=== PATIENT | male | born 1965 | race Caucasian/White ===

== ENCOUNTER 2024-05-01 03:12 | Emergency (ER) | payer BC, SELFPAY ==
--- NOTE | ~2024-05-01 | XR_ITS ---
XR chest 1V portable DATE: 05/01/2024 03:48 INDICATION: Rule out pneumonia TECHNIQUE: Portable upright AP chest on 05/01/2024 at 0338 hours COMPARISON: None FINDINGS: Normal heart size. There is minimal thoracic aortic tortuosity. No hilar or mediastinal enl argement. No pulmonary infiltrate or consolidation, pleural effusion or pulmonary vascular congestion or pneumo thorax. Included skeletal structures are unremarkable. IMPRESSION: No active cardiopulmonary disease Reviewed, dictated and finalized at location A. R MANAGER
[2024-05-01] MEDS: IPRATROPIUM 0.5 MG/ALBUTEROL SULFATE 2.5 MG AMPUL.NEB 3 ML INHALATION (03:55)
[2024-05-01 03:56] VITALS: PULSE 69; RESP 20
[2024-05-01 04:03] VITALS: PULSE 67; RESP 18
[2024-05-01] MEDS: predniSONE 20 MG TABLET 60 MG PO (04:12)
[2024-05-01] MEDS: BENZONATATE 100 MG CAPSULE 200 MG PO (04:16)
--- NOTE | 2024-05-01 04:43 | ED_ITS ---
HPI - General Adult General Chief complaint: Upper Respiratory Infection Stated complaint: coughing, I feel like im drowning Time Seen by Provider: 05/01/24 03:39 History of Present Illness HPI narrative: patient is a 59-year-old gentleman who presents emergency department with chief complaint of cough and gurgling when he breathes. The patient states this feels similar to whenever he has had pneumonia patient reports his symptoms started on Friday the patient states he has had a cough has been productive of mucus the patient denies fever reports that he has recently been traveling. The patient denies leg pain or swelling Related Data Allergies Allergy/AdvReac Type Severity Reaction Status Date / Time No Known Allergies Allergy Unverified 02/24/14 17:11 Review of Systems Review of Systems: A 10 system review of systems was completed on the patient and is negative except for what is stated in the HPI. Nursing and ancillary documentation was reviewed. [facility] Family History Family History Other Cerebrovascular accident Family history of allergic disorder Family history of cardiovascular disease Social History Social History Alcohol intake: never Exam Narrative: GENERAL: Well-appearing, well-nourished, and in no acute distress. HEAD: Normocephalic, atraumatic. EYES: PERRLA and EOMI. ENT: Nares clear, no rhinorrhea or epistaxis. Mucous membranes moist. NECK: Supple. CHEST: Clear to auscultation. No respiratory distress. HEART: Regular rate and rhythm. No murmur heard. Normal peripheral pulses. ABDOMEN: Soft, nontender, nondistended, normal active bowel sounds. EXTREMITIES: Normal range of motion. No edema. SKIN: Warm, dry, no rash. NEURO: No focal deficits. Alert and oriented x3. PSYCH: Normal mood and affect. Course Vital Signs Vital signs: Vital Signs Pulse Rate 69 05/01/24 03:56 Respiratory Rate 20 05/01/24 03:56 Temperature 36.7 C 05/01/24 05:04 Pulse Rate 78 05/01/24 05:04 Respiratory Rate 18 05/01/24 05:04 Blood Pressure 129/75 05/01/24 05:04 Pulse Oximetry 98 05/01/24 05:04 Medical Decision Making Vital Signs Vital Signs: Vital Signs Pulse Rate 69 05/01/24 03:56 Respiratory Rate 20 05/01/24 03:56 Temperature 36.7 C 05/01/24 05:04 Pulse Rate 78 05/01/24 05:04 Respiratory Rate 18 05/01/24 05:04 Blood Pressure 129/75 05/01/24 05:04 Pulse Oximetry 98 05/01/24 05:04 Lab Data Labs: Lab Results 05/01/24 Range/Units 04:10 Influenza A (RT-PCR) Negative (Negative) Influenza B (RT-PCR) Negative (Negative) RSV (RT-PCR) Negative (Negative) SARS-CoV-2 RNA (RT-PCR) Negative (Negative) Discharge Plan Discharge Clinical Impression: Upper respiratory infection, Acute viral bronchitis Patient Disposition: Home, Self-Care Condition: Stable Instructions: Antibiotic Form, Acute Bronchitis (ED), Upper Respiratory Infection (ED) Follow-up/Referrals: PHYSICIAN,FAMILY DENTIST [Primary Care Provider] -
[2024-05-01 04:54] LABS: Influenza A QL RT-PCR Negative (Negative); Influenza B QL RT-PCR Negative (Negative); RSV RNA, RT-PCR Negative (Negative); SARS-CoV-2 RNA PCR Negative (Negative)
[2024-05-01 05:04] VITALS: BP 129/75; PULSE 78; RESP 18; TEMP 36.7; O2SAT 98
== END 2024-05-01 05:24 | disposition home or self-care (01) ==
PROVIDERS: Emergency Provider Emergency Medicine
DX: J20.8 Acute bronchitis due to other specified organisms (principal); J06.9 Acute upper respiratory infection, unspecified; Z20.822 Contact with and (suspected) exposure to COVID-19; Z87.01 Personal history of pneumonia (recurrent)
CPT/HCPCS: 71045; 87637; 94640; 99283; A9270; J7512

== ENCOUNTER 2025-02-26 18:32 | Emergency (ER) | payer BC, SELFPAY ==
[2025-02-26 18:36] VITALS: BP 123/87; PULSE 98; RESP 16; TEMP 36.6; O2SAT 99
--- OUTSIDE RECORDS SUMMARY | 2025-02-26 19:25 | XMS_ITS | Data Portability ---
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 Plan of Treatment Reminders Order Date Submit Date Provider Last Modified By Organization Details Last Modified Time Details Appointments Follow Up 15 2024 02:45P Niru Woods NP Not available Not available Not available Lab vitamin D, 25-hydrox y, total, serum 2024 025 [facility] (Lab), [address] [place], [address], 01/21/2025 13:46:03 CBC w/ auto diff 2024 025 [facility] (Lab), [address] [place], [address], 01/21/2025 13:46:03 lipid panel, serum 2024 025 [facility] (Lab), [address] [place], [address], 01/21/2025 13:46:03 CMP, serum or plasma 2024 025 [facility] (Lab), [address] [place], [address], 01/21/2025 13:46:03 PSA, serum or plasma 2024 025 [facility] [address] [place], [address], 01/28/2025 09:24:36 Referral None recorded. Procedures None recorded. Surgeries None recorded. Imaging None recorded. Medication Orders methylphe nidate ER 27 mg tablet,ex tended release 24 hr 2024 025 [id number], [address], [place], [id number], 01/20/2025 15:05:17 methylphe nidate ER 36 mg tablet,ex tended release 24 hr 2024 025 [id number] [facility] #[id number], [address], [place], [id number], 02/21/2025 08:48:11 methylphe nidate ER 36 mg tablet,ex tended release 24 hr 2023 024 [id number] [facility] #[id number], [address], [place], [id number], 02/21/2025 08:48:11 Patient TargetsNo targets recorded. Patient InstructionsNo instructions recorded. Reason for Referral None Reported. Results Created Date Observation Date Name Description Value Unit Range Abnormal Flag Note LastModifiedBy Organization Detail LastModifiedTime 10/16/1910/15/2024 DRUG MONIT OR, PANEL 3, SCREE N, URINE amphetamines NEGATI VE NG/mL <500 See Note A See Note A Not Available [facility] [address], [place], [address], 10/15/2024 19:07:36 10/16/1910/15/2024 DRUG MONIT OR, PANEL 3, SCREE N, URINE benzodiazepi maria victoria NEGATI VE NG/mL <100 See Note A See Note A Not Available [facility] [address], [place], [address], 10/15/2024 19:07:36 10/16/19 25 10/15/2024 DRUG MONIT OR, PANEL 3, SCREE N, URINE cocaine metabolite NEGATI VE NG/mL <150 See Note A See Note A Not Available [address], [place], [address], 10/15/2024 19:07:36 10/16/19 25 10/15/2024 DRUG MONIT OR, PANEL 3, SCREE N, URINE marijuana metabolite NEGATI VE NG/mL <20 See Note A See Note A Not Available [address], [place], [address], 10/15/2024 19:07:36 10/16/1910/15/2024 DRUG MONIT OR, PANEL 3, SCREE N, URINE opiates NEGATI VE NG/mL <100 See Note A See Note A Not Available [address], [place], [address], 10/15/2024 19:07:36 10/16/1910/15/2024 DRUG MONIT OR, PANEL 3, SCREE N, URINE oxycodone NEGATI VE NG/mL <100 See Note A See Note A Not Available [address], [place], [address], 10/15/2024 19:07:36 10/16/19 25 10/15/2024 DRUG MONIT OR, PANEL 3, SCREE N, URINE creatinine 24.5 mg/dL > or = 20.0 Not Available [address], [place], [address], 10/15/2024 19:07:36 10/16/1910/15/2024 DRUG MONIT OR, PANEL 3, SCREE N, URINE pH 6.4 4.5-9. 0 Not Available [address], [place], [address], 10/15/2024 19:07:36 10/16/19 10/15/2024 DRUG MONIT OR, PANEL 3, SCREE N, URINE oxidant NEGATI VE mcg/m L <200 Not Available [facility] [address] , [place], [address], 10/15/2024 19:07:36 10/16/1910/15/2024 DRUG MONIT OR,ME THYLP HENID METAB , QN, URINE ritalinic acid 2931 NG/mL <100 high Not Available [facility] [address], [place], [address], 10/15/2024 19:07:38 10/16/1910/15/2024 DRUG MONIT OR,ME THYLP HENID METAB , QN, URINE ritalinic acid comments See Rital inic Acid Notes , LDT Notes Not Available [facility] [address], [place], [address], 10/15/2024 19:07:38 10/16/1910/15/2024 DRUG MONIT ORING TEMPL ATE notes and comments This drug testi ng is for medic al treat ment only. Migue sis was perfo rmed as non-f orens ic testi ng and these resul ts shoul d be used only by healt linseyre provi ders to rende r diagn osis or treat ment, or to monit or progr ess of medic al condi tions . Note A: The resul ts are presu mptiv e; based only on scree new metho ds, and they have not been confi rmed by a defin itive metho d. Rital inic Acid Notes : Rital inic Acid detec venecia is consi stent with the use of the drug Methy lphen idate . LDT Notes : Confi rmati on tests were devel oped and their migue tical perfo rmanc e mirtha cteri stics have been deter mined by [facility]. It has not been clear ed or appro franck by the FDA. This assay has been valid ated pursu ant to the CLIA regul ation s and is used for clini lamine purpo ses. Healt hcare Provi ders needi ng Inter preta tion maureen tance , pleas e conta ct us at 1.877 .40.R XTOX (1.87 [phone] ) M-F, 8am to 10pm EST Not Available [facility] [address], [place], [address], 10/15/2024 19:07:39 Result Notes None recorded. Problems Name Problem SNOMED Code Status Onset Date Resolution Date Notes Provider Name and Address Organization Details Recorded Time Radiothera py follow-up 836864569 Active Not Available [facility] 3 08:47:10 Current knee cartilage tear Active Not Available [facility] 3 08:47:10 Dermal cellular nevus 069142283 Active Not Available [facility] 3 08:47:11 Current tear of medial cartilage AND/OR meniscus of knee Active Not Available [facility] 3 08:47:11 Pain in right knee Active Not Available [facility] 3 08:47:11 Genital herpes simplex 85823000 Active Not Available [facility] 3 08:47:11 Vitamin D deficiency 90783782 Active Not Available [facility] 3 08:47:11 Attention deficit hyperactiv ity disorder 962318839 Active Not Available [facility] 3 08:47:11 Benign prostatic hyperplasi a 282304675 Active 2019 Not Available [facility] 3 08:47:10 Erectile dysfunctio n 587851257 Active 2021 Not Available [facility] 3 08:47:11 Osteoarthr itis of right knee joint 3954543145871 00 Active 2021 Not Available [facility] 3 08:47:11 Injury of toenail 536033094 Active 2022 JAME Lester [address], [facility] [address], [place], [address] , [place] [employer] [facility] 3 11:25:07 Hyperlipid emia 51560778 Active 2022 JAME Lester [address], [address], [place], [address] , [facility] 3 11:38:20 Arthritis 9426176 Active 2022 Caridad Nohemi teague, [facility] 3 14:28:08 Subungual hematoma of great toe of left foot 6652595847760 9107 Active 2022 Barak Dumont DPM [address], [address], [place], [address] , [facility] 3 14:43:26 Pain of toe of left foot 0922330238007 08 Active 2022 Barak Dumont DPM [address], [address], [place], [address] , [facility] 3 15:54:44 Memory impairment 858812069 Active 2022 JAME Lester [address], [address], [place], [address] , [facility] 3 14:50:10 Pain of right knee joint 5145230241348 00 Active 2023 CRIS Jerry [address], [address], [place], [address] , [facility] 4 09:44:39 Compressio n fracture of lumbar spine 299639893 Active 2023 Idania teague, [facility] 4 16:27:56 Fracture of multiple ribs 9698117 Active 2023 Idania teague, [facility] 4 16:29:01 Problem Notes None recorded. Procedures Surgical History Date Name Laterality Status Provider Name and Address Organization Details Recorded Time 12/17/19 23 Nail Debridement completed Barak Dumont DPM [address], [address], [place], [address], [facility] 12/16/2022 14:42:40 07/06/19 20 Colonoscopy completed Not Available [facility] 08/01/19 08:43:25 Prostatectomy completed Not Available [facility] 07/31/2022 08:43:25 Knee arthroscopy/surge ry completed Not Available [facility] 07/31/2022 08:43:25 Imaging Results None recorded. Procedure Notes None recorded. Medical Equipment None Reported. Allergies No known drug allergies Medications Name Sig Start Date Stop Date Status Note LastModified by Organization Details LastModified Time Hydromet 5 mg-1.5 mg/5 mL oral solution TAKE 5 TO 10 ML BY MOUTH EVERY 4 TO 6 HOURS NEEDED FOR COUGH 01/20 completed Not Available Not Available Not Available celecoxib 200 mg capsule 12/16 completed Not Available Not Available Not Available benzonatate 200 mg capsule 01/20 completed Not Available Not Available Not Available methylpheni date 10 mg tablet TAKE 1 TABLET BY MOUTH TWICE DAILY 12/16 completed Not Available Not Available Not Available valacyclovi r 1 gram tablet TAKE 1 TABLET BY MOUTH EVERY 12 HOURS NEEDED 2024 active Not Available Not Available Not Avai lable hydrocodone 5 mg-acetamin ophen 325 mg tablet TK ONE OR TWO TS PO Q 6 H PRN 01/26 completed Not Available Not Available Not Available prednisone 20 mg tablet 3 po qday x 3 days then 2 po qday x 3 days then 1 po qday x 3 days then 1/2 tab po qday x 3 days then stop 01/20 completed Not Available Not Available Not Available Zithromax Z-Sravan 250 mg tablet TAKE 2 TABLETS (500 MG) BY ORAL ROUTE ONCE DAILY FOR 1 DAY THEN 1 TABLET (250 MG) BY ORAL ROUTE ONCE DAILY FOR 4 DAYS 12/16 completed Not Available Not Available Not Available methylpheni date ER 54 mg tablet,exte nded release 24 hr Take 1 tablet every day by oral route for 30 days. 09/03 completed Not Available Not Available Not Available oxycodone-a cetaminophe n 5 mg-325 mg tablet TAKE 1-2 TABLET BY MOUTH EVERY 6 HOURS NEEDED FOR PAIN 05/15 completed Not Available Not Available Not Available cephalexin 500 mg capsule TAKE ONE CAPSULE BY MOUTH FOUR TIMES DAILY FOR 7 DAYS 03/21 completed Not Available Not Available Not Available oseltamivir 75 mg capsule TK 1 C PO BID FOR 5 DAYS 09/30 completed Not Available Not Available Not Available neomycin-po lymyxin-dex ameth 3.5 mg/mL-10,00 0 unit/mL-0.1 % eye drops INT ONE GTT INTO OU QID X 7 DAYS active Not Available Not Available No t Available tobramycin 0.3 % eye drops INSTILL 1 DROP IN AFFECTED EYE Q 3 H UTD active Not Available Not Available No t Available gabapentin 300 mg capsule 01/20 completed Not Available Not Available Not Available Adderall XR 10 mg capsule,ext ended release TAKE 1 CAPSULE BY MOUTH EVERY DAY 11/18 completed Not Available Not Available Not Available diclofenac sodium 75 mg tablet,demarcus yed release TK 1 T PO BID 01/26 completed Not Available Not Available Not Available ergocalcife rol (vitamin D2) 1,250 mcg (50,000 unit) capsule TK 1 C PO ONCE WEEKLY IN THE MORNING FOR 12 WEEKS 06/08 completed Not Available Not Available Not Available methylpredn isolone 4 mg tablets in a dose pack FOLLOW PACKAGE DIRECTION S 08/28 completed Not Available Not Available Not Available albuterol sulfate HFA 90 mcg/actuati on aerosol inhaler INHALE TWO PUFFS Q 6 H PRN FOR SOB 01/20 completed Not Available Not Available Not Available ondansetron 4 mg disintegrat ing tablet 01/20 completed Not Available Not Available Not Available fluticasone propionate 50 mcg/actuati on nasal spray,suspe nsion SHAKE LIQUID AND USE 1 SPRAY IN EACH NOSTRIL EVERY DAY 12/16 completed Not Available Not Available Not Available finasteride 5 mg tablet TAKE 1 TABLET BY MOUTH AT BEDTIME 01/20 completed Not Available Not Available Not Available methylpheni date ER 36 mg tablet,exte nded release 24 hr TAKE 1 TABLET BY MOUTH EVERY DAY DIRECTED 02/21 completed Not Available Not Available Not Available methylpheni date ER 27 mg tablet,exte nded release 24 hr Take 1 tablet every day by oral route. 2024 active Not Available Not Available Not Avai lable azithromyci n 500 mg tablet TAKE 1 TABLET BY MOUTH DAILY 01/20 completed Not Available Not Available Not Available tadalafil 20 mg tablet TAKE 1 TABLET BY MOUTH EVERY DAY NEEDED 12/16 completed Not Available Not Available Not Available pregabalin 75 mg capsule 12/16 completed Not Available Not Available Not Available Vyvanse 30 mg capsule TAKE 1 CAPSULE BY MOUTH DAILY 11/04 completed Not Available Not Available Not Available Vyvanse 40 mg capsule Take 1 capsule every day by oral route for 30 days. 12/24 completed Not Available Not Available Not Available diclofenac 1 % topical gel APPLY TO THE AFFECTED AREA 3 TO 4 TIMES DAILY NEEDED 03/21 completed Not Available Not Available Not Available Vimovo 500 mg-20 mg tablet,imme diate and delay release TAKE 1 TABLET BY MOUTH TWICE DAILY 12/16 completed Not Available Not Available Not Available Eliquis 2.5 mg tablet 12/16 completed Not Available Not Available Not Available Pennsaid 20 mg/gram/act uation (2 %) topical soln in metered-dos e pump APPLY 2 PUMPS (40 MG) TO THE AFFECTED KNEE(S) BY TOPICAL ROUTE 2 TIMES PER DAY 08/25 completed Not Available Not Available Not Available Pennsaid 2 % topical solution in packet APPLY 2 PUMPS TO THE AFFECTED KNEE(S) TWICE DAILY 09/13 completed Not Available Not Available Not Available Flucelvax Quad (PF) 60 mcg (15 mcg x 4)/0.5 mL IM syringe ADM 0.5ML IM UTD 07/06 completed Not Available Not Available Not Available ID NOW COVID-19 Test Kit TEST DIRECTED TODAY 03/21 completed Not Available Not Available Not Available Fluzone Quad (PF) 60 mcg (15 mcg x 4)/0.5 mL IM syringe ADM 0.5ML IM UTD 09/13 completed Not Available Not Available Not Available Vitals Date Recorded Body height Body mass index (BMI) Body weight Body temperature Heart rate Oxygen saturation Oxygen saturation in Arterial blood by Pulse oximetry Systolic And Diastolic Provider Name and Address Organization Details Last Updated DateTime 5 182.88 cm 25 kg/m2 60804 g 97.7 [degF] 88 /min 99 % 99 % 138/80 mm[Hg] Janae Andersen RN [place] [employer] [facility] 5 09:57:56 Date Recorded Body height Body mass index (BMI) Body weight Body temperature Heart rate Oxygen saturation Oxygen saturation in Arterial blood by Pulse oximetry Systolic And Diastolic Provider Name and Address Organization Details Last Updated DateTime 5 182.88 cm 24 kg/m2 70055.8 5 g 98.7 [degF] 78 /min 98 % 98 % 124/80 mm[Hg] JAZZ Mcfarlane [facility] [employer] [facility] 5 14:53:00 Date Recorded Body height Body mass index (BMI) Body weight Body temperature Heart rate Oxygen saturation Oxygen saturation in Arterial blood by Pulse oximetry Systolic And Diastolic Provider Name and Address Organization Details Last Updated DateTime 4 182.88 cm 25.1 kg/m2 55615.5 9 g 98.1 [degF] 77 /min 99 % 99 % 144/86 mm[Hg] Lindsay Caceres RN [facility] [employer] [facility] 4 14:06:19 Social History Question Answer Notes LastModified by Organizat ion Details LastModified Time Tobacco Smoking Status Former Smoker Not Available [facility] 07/31/2022 08:43:19 What Is Your Level Of Caffeine Consumption? Occasional [id number] Information not available 07/31/2022 In The 14 Days Before Symptom Onset, Have You Had Close Contact With A Laboratory-confi rmed COVID-19 While That Case Was Ill? No [id number] Information not available 07/31/2022 In The 14 Days Before Symptom Onset, Have You Had Close Contact With A Person Who Is Under Investigation For COVID-19 While That Person Was Ill? No [id number] Information not available 07/31/2022 What Type Of Diet Are You Following? REGULAR [id number] Information not available 07/31/2022 Which Illicit Or Recreational Drugs Have You Used? None [id number] Information not available 07/31/2022 When Did You Quit Smoking? 16+yearssinkristel nuñez Information not available 01/20/2025 Do You Use Insect Repellent Routinely? No Information not available 01/20/2025 Where Do You Live? SingleLevelHouse Information not available 01/20/2025 What Was The Date Of Your Most Recent Tobacco Screening? 01/20/2025 Information not available 01/20/2025 How Many Children Do You Have? 2 Information not available 01/20/2025 Do You Have Any Pets? No Information not available 01/20/2025 What Is Your Relationship Status? Information not available 01/20/2025 Do You Use Your Seat Belt Or Car Seat Routinely? Yes Information not available 01/20/2025 Do You Have Smoke And Carbon Monoxide Detectors In Your Home? Yes Information not available 01/20/2025 Are You Passively Exposed To Smoke? No Information not available 01/20/2025 Are There Any Smokers In Your House? No Information not available 01/20/2025 How Much Tobacco Do You Smoke? 1 PPD [id number] Information not available 07/31/2022 Do You Participate In Social Media? Yes Information not available 01/20/2025 Do You Use Sunscreen Routinely? No Information not available 01/20/2025 Has Tobacco Cessation Counseling Been Provided? No [id number].[id number] Information not available 07/31/2022 Have You Recently Traveled Abroad? No [id number].[id number] Information not available 07/31/2022 Do You Have Any Dietary Restrictions? No [id number].35913 [id number] Information not available 07/31/2022 Sex: Unknown Functional Status Question Answer Note LastModified by Organizat ion Details LastModified Time Do you use any illicit or recreational drugs? No [id number] Information not available 07/31/2022 Do you or have you ever used any other forms of tobacco or nicotine? No [id number] Information not available 07/31/2022 What is your level of alcohol consumption? None [id number] Information not available 07/31/2022 Are you currently employed? Yes Information not available 01/20/2025 What is your occupation? [employer] [id number] 26 Information not available 07/31/2022 What is your exercise level? Heavy MIGRATION.[id number] 26 Information not available 07/31/2022 Mental Status Question Answer Note LastModified by Organization D etails LastModified Time Do you feel stressed (tense, restless, nervous, or anxious, or unable to sleep at night)? [id number] Information not available 01/20/2025 Family History Relationship Description Onset Age of this Age Resolved Age Notes LastModified by Organization Details LastModified Time Mother Cerebrovascu lar accident [email or web address] Not available 14:28:38 Mother Arthritis [email or web address] Not available 12/16/2022 14:28:46 Mother Family history of malignant neoplasm [email or web address] Not available 2022 14:29:35 Father Hypertensive disorder [email or web address] Not available 2022 14:29:06 Father Heart disease [email or web address] Not available 2022 14:29:16 Father Family history of malignant neoplasm [email or web address] Not available 2022 14:29:35 Brother Family history of malignant neoplasm [email or web address] Not available 2022 14:29:35 Notes:CANCER ON BOTH SIDES: LUNGS, BRAIN, SKIN, BREAST, COLON, PROSTATE Medical History Condition Response EAR OR HEARING PROBLEMS Y URINARY/BLADDER/KIDNEY PROBLEMS Y ARTHRITIS Y ADD/ADHD Y PNEUMONIA Y Immunizations Vaccine Type Date Status Note Provider Nam e and Address Organization Details Recorded Time Influenza, split virus, trivalent, preservative 1 completed Not Available [facility] 01/21/2025 08:32:17 COVID-19, mRNA, LNP-S, PF, 100 mcg/0.5mL dose or 50 mcg/0.25mL dose 1 completed Not Available [facility] 01/21/2025 08:32:17 zoster recombinant 1 completed Not Available [facility] 01/21/2025 08:32:17 Influenza, MDCK, quadrivalent, PF 2 completed Not Available [facility] 01/21/2025 08:32:17 COVID-19, mRNA, LNP-S, PF, 50 mcg/0.5 mL 4 completed Not Available [facility] 01/21/2025 08:32:17 Influenza, split virus, quadrivalent, PF 3 completed Lisa Barajas LPN null, [place] [facility] 03/25/2023 15:42:10 COVID-19, mRNA, LNP-S, PF, 30 mcg/0.3 mL dose 1 completed Not Available [facility] 07/31/2022 08:50:21 COVID-19, mRNA, LNP-S, PF, 30 mcg/0.3 mL dose 1 completed Not Available [facility] 07/31/2022 08:50:21 Influenza, split virus, quadrivalent, preservative 0 completed Not Available [facility] 07/31/2022 08:50:21 Influenza, split virus, quadrivalent, preservative 9 completed Not Available [facility] 07/31/2022 08:50:21 Influenza, split virus, quadrivalent, preservative 7 completed Not Available [facility] 07/31/2022 08:50:22 Tdap 6 completed Not Available [facility] 07/31/2022 08:50:22 Influenza, split virus, trivalent, preservative 5 completed Not Available [facility] 07/31/2022 08:50:22 Influenza, split virus, trivalent, preservative 4 completed Not Available [facility] 07/31/2022 08:50:22 pneumococcal, unspecified formulation 5 completed Not Available [facility] 07/31/2022 08:50:22 Tdap 1 completed Not Available [facility] 07/31/2022 08:50:22 Influenza, split virus, quadrivalent, PF 8 completed Not Available [facility] 07/31/2022 08:50:22 Past Encounters Encounter ID Performer Location Encounter Start Date Encounter Closed Date Diagnosis/Indication Diagnosis SNOMED-CT Code Diagnosis ICD10 Code Diagnosis IMO Codes Diagnosis Note [id number] [facility] [place] [place] [address] 09/13/2020 00:00:00 09/13/2020 09:35:54 [id number] Tone Tobar MD [facility] [address] [place] [address] 12/12/2020 00:00:00 12/12/2020 16:19:58 [id number] Tone Tobar MD [facility] [place] [address] [place] [address] y , [place] [address] 08/28/2021 00:00:00 08/28/2021 16:06:57 [id number] Tone Tobar MD [facility] [place] [address] [place] [address] y , [place] [address] 10/04/2021 00:00:00 10/04/2021 11:07:21 [id number] Tone Tobar MD [facility] [place] [address] [place] [address] y , [place] [address] 03/21/2022 00:00:00 03/21/2022 16:01:30 [id number] Tone Tobar MD [facility] [place] [address] [place] [address] y , [place] [address] 04/16/2022 00:00:00 04/16/2022 15:13:47 [id number] JAME Lester [facility] [place] [address] [facility] [address] [place] [address] 05/15/2022 00:00:00 05/15/2022 14:27:00 [id number] JAME Lester [facility] [place] [address] [facility] [address] [place] [address] 06/12/2022 00:00:00 06/12/2022 12:25:56 [id number] JAME Lester [facility] [place] [address] [facility] [place] [address] 10/16/2022 11:09:56 10/16/2022 11:59:02 Attention deficit hyperactivity disorder [id number] F90.9 Has not had good response with the adderall, states it makes him feel hung over and does not help him focus. He also cannot tolerate vyvanse or generic methylphen idate due to severe foot pain, felt like his nerves were tender.ILP DM checked today and appropriat e. UDS updated.Wi ll try to get approval again for Concerta to get him back on it since it worked better. If it does work he would like to try brand name ritalin. Injury of toenail [id number] S99.922A Left big toe.Toenai l is intact but likely to come off. Some mild erythema around nailbed.Wi ll do course of steroids for inflammati on, refer to podiatry to address nail. Hyperlipidemia [id number] E78.5 Screening for malignant neoplasm of prostate [id number] Z12.5 Vitamin D deficiency 347 10348 E55.9 Diabetes m ellitus screening [id number] Z13.1 [id number] Barak Dumont DPM [facility] Podiatry Glenroy Vivas [address] [place] [address] 12/16/2022 14:21:52 12/16/2022 15:56:46 Subungual hematoma of great toe of left foot [id number] S90.212A Left great toenail debrided without incidentOf floading of toeallow nail to regrowfoll ow-up as needed Pain of to e of left foot [id number] 21911 M79.675 great toe, left [id number] Olivia George MD [facility] [address] [place] [address] 03/25/2023 14:20:48 03/25/2023 16:48:47 Attention deficit hyperactivity disorder [id number] F90.9 Stable on methylphen idate ER 36mg daily. No refill needed today.UDS up to date. Memory impairment 556621 006 R41.3 Pt. concerned because he is forgetting names of people he has known for years. States he goes to do something and will forget what he was about to do. He denies having any trouble with rememberin g where he lives, daily chores/act ivities or his immediate family.Nii l get labs to r/o physiologi c causes, will also consider it could be due to his methylphen idate as he thinks symptoms also could be correlated when he switched medication s.He is still concerned and would like to evaluated by neuro. Will send referral today. Administra tion of influenza vaccine [id number] Z23 [id number] CRIS Jerry [facility] Primary Care [address] [place] [address] 12/12/2023 09:26:24 12/12/2023 09:54:50 Long-term drug therapy [id number] Z79.899 Pt denies any lending, selling, or borrowing of medication s. Denies any cp, sob, palpitatio ns, or unusual weight loss.Revie wed controlled substance agreement requiremen ts. 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 t x2 (most recently 2021)ibupr ofen/ice for painROM and strength are limited during exacerbati onshe is planning on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
--- OUTSIDE RECORDS SUMMARY | 2025-02-26 19:26 | XMS_ITS | Clinical Summary ---
Author Organization [facility] Address [address] [place] [address] Care Team Providers Care Padder Name Role Phone Verenice Woods KIM Primary Care Provider [phone] Allergies No known active allergies Medications methylphenidate CR (CONCERTA) 36 MG tablet Take 1 tablet (36 mg total) by mouth every morning. Active Encounters Date Type Department Care Team Description 02/15/2025 1:52 PM CDT Anesthesia Event [facility] [address] Demario Christian MD 02/15/2025 1:30 PM CDT - 02/15/2025 2:00 PM CDT Surgery [facility] [address] Dayton Sunshine IV, MD COLONOSCOPY WITH MID RECTAL POLYPECTOMY VIA HOT SNARE 02/15/2025 12:38 PM CDT - 02/15/2025 3:53 PM CDT Hospital Encounter [facility] [place] [address] Dayton Sunshine IV, MD Discharge Disposition: Home or Self Care (Routine Discharge) 02/15/2025 Travel from Last 3 Months Social History Tobacco Use Types Packs/Day Years Used Date Smoking Tobacco: Never Assessed Sex and Gender Information Value Date Recorded Sex Assigned at Male 02/15/2025 1:49 PM CDT Legal Sex Male 8:20 PM CDT Gender Identity Not on file Sexual Orientation Not on file Last Filed Vital Signs Vital Sign Reading Time Taken Comments Blood Pressure 122/76 02/15/2025 3:06 PM CDT Pulse 57 02/15/2025 3:06 PM CDT Temperature 36.4 C (97.6 F) 02/15/2025 2:35 PM CDT Respiratory Rate 18 02/15/2025 3:06 PM CDT Oxygen Saturation 100% 02/15/2025 3:06 PM CDT Inhaled Oxygen Concentration - - Weight 77.1 kg (170 lb) 02/15/2025 1:48 PM CDT Height 182.9 cm (6') 02/15/2025 1:48 PM CDT Body Mass Index 23.06 02/15/2025 1:48 PM CDT Plan of Treatment Health Maintenance Due Date Last Done Comments Annual Physical 1968 Hepatitis C 1983 Pneumococcal Vaccine: 50+ Years (1 of 1 - PCV) 2015 Zoster Vaccines (2 of 2) 07/05/2021 05/10/2021 COVID-19 Vaccine (5 - season) 2025 06/19/2023, 05/10/2021, 08/14/2020, Additional history exists DTaP, Tdap and Td Vaccines (6 - Td or Tdap) 01/05/2034 01/06/2024, 07/03/2015, 07/03/2009, Additional history exists Colorectal Cancer Screening Colonoscopy (10 Years) 02/15/2035 02/15/2025 Meningococcal B Vaccine Aged Out No l onger eligible based on patient's age to complete this topic Meningococcal Vaccine Aged Out No sharon otto eligible based on patient's age to complete this topic RSV Immunizations Under 20 Months Aged Out No longer eligible based on patient's age to complete this topic Procedures Procedure Name Priority Date/Time Associated Diagnosis Comments COLSC FLX W/RMVL OF TUMOR POLYP LESION SNARE TQ 02/15/2025 1:51 PM CDT Hx of polyps PROCEDURE GENERIC 02/15/2025 12: 34 PM CDT PATHOLOGY Routine 02/15/2025 12:00 AM CDT from Last 3 Months Results * PROCEDURE GENERIC (02/15/2025 12:34 PM CDT) us Dayton Sunshine IV, MD [facility] Final Resu lt * Pathology (02/15/2025 12:00 AM CDT) PATHOLOGY [facility] Department of Laboratory Medicine [address] [place] [address] , extension [phone] Pathology Report Surgical Pathology Report Name: MIRTHA POWERS Specimen #: [id number] Age: 10 1965 (Age: 59) Location: [facility] Sex: M Procedure Date: 02/15/2025 Hospital #: [id number] Date Received: 02/16/2025 Date Reported: 02/17/2025 Provider: DAYTON SUNSHINE IV, MD Source: Mid rectum, polyp Clinical History: History of polyps. FINAL DIAGNOSIS: Rectum, mid, polyp, biopsy: - Tubular adenoma. Gross Description: Received in formalin, labeled with a patient label and as polyp mid rectal is a 0.3 x 0.2 x 0.2 cm garcia polyp. The base is identified and inked black. The polyp is left intact. The specimen is entirely submitted in cassette 1. Gross examination (when applicable) was performed at [facility], [address] [place] [address]. This case was interpreted and signed out at [facility], [address] [place] [address]. Electronically Signed Out Ambreen Albrecht M.D. [facility] TISSUE SPECIMEN FROM RECTUM / Unknown 02/15/2025 2:29 PM CDT Dayton Sunshine IV, MD PATHOLOGY/CYTOLOGY ORDERABLE S Final Result [facility] [address] [place] [address], [id number] from Last 3 Months Insurance [facility] Care Teams Padder Relationship Specialty Start Date End Date Verenice Woods FNP [address] [phone] PCP - General NURSE PRACTITIONER 02/15/25
--- NOTE | 2025-02-26 19:31 | ED_ITS ---
HPI - Wound/Laceration General Chief Complaint: Wound/Laceration Stated Complaint: Finger lac Time Seen by Provider: 02/26/25 18:54 History of Present Illness HPI narrative: Patient is a 59-year-old male who presents to the ER with a laceration to his right pinky finger. 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 Patient reports it happened around 8 or 9:00 a.m. this morning. He is unsure when he last had his Tdap shot. Patient endorses a history of ADD but denies any other medical history relevant to this ER visit. He reports when he pushes on the laceration site it is painful and the site starts bleeding again. Related Data Allergies Allergy/AdvReac Type Severity Reaction Status Date / Time No Known Allergies Allergy Verified 02/26/25 18:32 Review of Systems Review of Systems: All systems reviewed & are unremarkable except as noted in HPI and below PMFSH Family History Family History Other Cerebrovascular accident Family history of allergic disorder Family history of cardiovascular disease Social History Social History Alcohol intake: never Exam Narrative: GENERAL: Well appearing, well-nourished, non-toxic, in no acute distress. HEAD: Normocephalic, atraumatic. NECK: Supple. No adenopathy, no masses. RESPIRATORY: Airway patent, respirations nonlabored. Clear to auscultation bilaterally, no rales, rhonchi, wheezing. CARDIOVASCULAR: Regular rate and rhythm without murmurs, rubs, or gallops. Peripheral pulses 2+ and equal bilaterally. ABDOMINAL: Soft, nontender, nondistended, no hepatosplenomegaly. Normoactive BS. MUSCULOSKELETAL: Moves all extremities. Strength/ROM intact without gross deformities. SKIN: Warm, dry, normal color. No rashes. Approximately 1 cm linear laceration to right pinky finger, bleeding controlled NEURO: A&O X3. Speech clear. Cranial nerves II-XII intact. No ataxic movements. PSYCHIATRIC: Appropriate mood and affect. Normal interaction. Course Vital Signs Vital signs: Vital Signs Temperature 36.6 C 02/26/25 18:36 Pulse Rate 98 02/26/25 18:36 Respiratory Rate 16 02/26/25 18:36 Blood Pressure 123/87 02/26/25 18:36 Pulse Oximetry 99 02/26/25 18:36 Oxygen Delivery Room Air 02/26/25 18:36 Temperature 36.6 C 02/26/25 18:36 Pulse Rate 98 02/26/25 18:36 Respiratory Rate 16 02/26/25 18:36 Blood Pressure 123/87 02/26/25 18:36 Pulse Oximetry 99 02/26/25 18:36 Oxygen Delivery Room Air 02/26/25 18:36 Procedures Laceration Laceration 1: Date: 02/26/25 Time: 20:30 Site: hand Side (If applicable): right Size (cm): 1 Description: linear Depth: simple, single layer Local Anesthetic: lidocaine 1% Amount of anesthesia used (mL): 5 Pre-repair: irrigated extensively ====== Skin Level ====== Skin layer closed with: nylon Size (cm): 4-0 Number of sutures: 2 Technique: simple, interrupted ====== Subcutaneous Layer ====== ====== Muscle Layer ====== ====== Tendon Layer ====== MDM - Wound/Laceration MDM Narrative Medical decision making narrative: Patient is a 59-year-old male who presents to the ER with a laceration to his right pinky finger. 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 Patient reports it happened around 8 or 9:00 a.m. this morning. He is unsure when he last had his Tdap shot. Patient endorses a history of ADD but denies any other medical history relevant to this ER visit. He reports when he pushes on the laceration site it is painful and the site starts bleeding again. Medications Ordered: Tdap IM, lidocaine 1% infiltrated, patient declined pain medication Diagnosis: Laceration Patient presented to ED after sustaining a small laceration to his right pinky. Vital signs stable upon arrival. No other injuries. Patient's tetanus status is unknown so he was given a tetanus shot. No active bleeding upon my evaluation. Lidocaine was used with adequate anesthesia. Laceration was repaired with 2 sutures without complications. Patient was given wound care instructions and advised to follow-up with his primary care doctor in the next 10-14 days suture removal. He was given reasons to return to the ED. All questions answered. Vital signs stable at time of discharge. Differential Diagnosis Differential diagnosis: Likely laceration, abrasion and avulsion of skin Discharge Plan Discharge Clinical Impression: Laceration Patient Disposition: Home Condition: Stable Instructions: Antibiotic Form, Care For Your Stitches (ED), Laceration (ED) Additional Instructions: Please return to the ER with any worsening symptoms. Follow-up with primary care provider in 10-14 days for suture removal. Take all medications as prescribed, including regularly scheduled medications. You may take Tylenol and/or ibuprofen for pain control. Please keep your sutures covered with a bandaid. Patient Language: Italian Prescriptions: No Action albuterol sulfate 90 mcg/actuation HFA aerosol inhaler 2 puff inhalation QID PRN (Reason: shortness of breath or wheezing) Qty: 8.5 0RF benzonatate 200 mg capsule 200 mg PO TID PRN (Reason: cough) Qty: 21 0RF prednisone 20 mg tablet 40 mg PO DAILY 5 Days Qty: 10 0RF Follow-up/Referrals: PHYSICIAN,JET DYEING MACHINE TENDER [Primary Care Provider, Internal Medicine] Gatito Hickman MD [Physician, Family Practice] Referral Note: primary care provider Stand Alone Forms: Work/School Release IP Time of Disposition: 20:34
[2025-02-26] MEDS: TETANUS,DIPHTHERIA,AC PERTUSSIS ADULT (0.5 ML) BOOSTRIX IM (20:44)
== END 2025-02-26 20:53 | disposition home or self-care (01) ==
PROVIDERS: Emergency Provider Registered Nurse
DX: S61.216A Laceration without foreign body of right little finger without damage to nail, initial encounter (principal); W26.8XXA Contact with other sharp object(s), not elsewhere classified, initial encounter; Z23 Encounter for immunization
CPT/HCPCS: 12001; 90471; 90715; 99282